=== PATIENT | female | born 1980 | race African-American/Black ===

== ENCOUNTER 2017-08-04 09:15 | Emergency (ER) | payer MEDICAID ==
[~2017-08-04] VITALS: Ht 175.3 cm; Wt 136.1 kg
[~2017-08-04 09:15] MED LIST: CARI-277 PO; LIS20T PO; MET10T PO; ONDA8TAB6 PO; OXY10CRT PO; OXYC325T14 PO; PANT40TA2 PO; SUCR1SUS10 PO
[2017-08-04] MEDS ORDERED: HYDROcodone-ACET 10/325MG TAB PO ONE (10:30)
[2017-08-04] MEDS ORDERED: LIDOCAINE 1% (LOCAL ANESTH.) PF 5ml SDV ONE (10:45)
[2017-08-04] MEDS ORDERED: cefTRIAXone SOD 1,000 MG VL IM ONE (10:45)
[2017-08-04] MEDS ORDERED: cefTRIAXone SOD 1,000 MG VL ONE (10:45)
[2017-08-04 10:56] VITALS: BP 166/93
== END 2017-08-04 11:14 | disposition home or self-care (01) ==
LOC: ER 09:15
DX: J18.9 Pneumonia, unspecified organism (principal); I10 Essential (primary) hypertension; F41.9 Anxiety disorder, unspecified; Z98.51 Tubal ligation status
CPT/HCPCS: 71046; 72100; 96372; 99284; J0696

== ENCOUNTER 2021-04-20 14:22 | Inpatient (IN) | payer MEDICAID ==
[~2021-04-20] VITALS: Ht 170.2 cm; Wt 161.9 kg
[~2021-04-20 14:22] MED LIST changes: +ONDA-143 PO; -ONDA8TAB6 PO
[2021-04-20] MEDS ORDERED: methylPREDNISolone SOD SUCC 125 MG/2 ML VL IM ONE (15:00)
[2021-04-20] MEDS ORDERED: DOXYCYCLINE 100MG/250ML 250 ML IV ONE (17:00)
[2021-04-20] MEDS ORDERED: cefTRIAXone 1GM/50ML D5W 50 ML IV ONE (18:15)
[2021-04-20] MEDS ORDERED: cefTRIAXone SOD 1,000 MG VL IM ONE (18:15)
[2021-04-20 18:42] LABS: Basophils # (auto) 0 10 ^3/uL (0-0.2); Basophils % (auto) 0.1 % (0.0-2.0); Eosinophils # (auto) 0 10 ^3/uL (0-0.8); Mean Corpuscular Hemoglobin 30.2 pg (28.0-32.0); Mean Corpuscular Hgb Conc. 32.5 g/dL (32.0-36.0); Mean Corpuscular Volume 92.8 fL (80.0-100.0); Monocytes # (auto) 0.2 10 ^3/uL (0-1.3); Monocytes % (auto) 1.9 % (0.0-12.0); Neutrophils # (auto) 7.3 10 ^3/uL (1.6-8.6); Nucleated Red Blood Cells % 0.1 %; Red Blood Cells 4.32 10^6/uL (4.0-5.20); Red Cell Distribution Width 13.8 % (11.8-14.3); White Blood Cell 8.4 10^3/uL (4.4-10.8)
[2021-04-20 19:09] LABS: Albumin 2.9 g/dL (3.4-5.0); Calcium 8.5 mg/dL (8.5-10.1); Potassium 4.1 mmol/L (3.5-5.1)
[2021-04-20 19:17] LABS: BUN/Creatinine Ratio 13.9; Bilirubin, Total 0.4 mg/dL (0.2-1.0)
[2021-04-20] MEDS ORDERED: IOHEXOL 350 MG/ML 100ML IJ ONE (20:21)
[2021-04-20] MEDS ORDERED: ONDANSETRON HCL 4 MG/2 ML VIAL IV ONE (22:00)
[2021-04-20] MEDS ORDERED: ACETAMINOPHEN 325 MG TAB PO PRN (22:45)
[2021-04-20] MEDS ORDERED: hydrALAZINE HCL 10 MG TAB PO PRN (22:45)
[2021-04-20] MEDS ORDERED: NITROGLYCERIN 0.4 MG SL TAB SL PRN (22:45)
[2021-04-20] MEDS ORDERED: MORPHINE SULFATE INJECTION 2 MG/ML SYRG IV PRN (22:45)
[2021-04-20] MEDS: PANTOPRAZOLE 40 MG/10 ML VIAL INJ IV SCH (23:28)
[2021-04-21 01:00] VITALS: BP 121/68
[2021-04-21] MEDS ORDERED: LOSA25TA38 PO (01:34)
[2021-04-21] MEDS: HYDROcodone-ACET 5/325MG TAB PO PRN (01:51)
[2021-04-21] MEDS ORDERED: SEMA2INJ SC (03:57)
[2021-04-21] MEDS ORDERED: IPRATROPIUM BROM 0.5 MG/2.5ML INH SOL NEB PRN (04:45)
[2021-04-21 05:00] VITALS: BP 113/71
[2021-04-21] MEDS: ASCORBIC ACID 500 MG TAB PO SCH (11:43)
[2021-04-21] MEDS: ZINC SULFATE 220mg CAP or TAB PO SCH (11:43)
[2021-04-21] MEDS: CHOLECALCIFEROL (VITD3) 2,000 UNIT CAP/TAB PO SCH (11:44)
[2021-04-21] MEDS: DOXYCYCLINE 100MG/250ML 250 ML IV SCH ×2 (11:47→21:14)
[2021-04-21] MEDS: PANTOPRAZOLE 40 MG/10 ML VIAL INJ IV SCH ×2 (12:03→21:14)
[2021-04-21] MEDS: DexAMETHasone SOD PHOS 10MG/1ML VIAL INJ IV SCH (12:03)
[2021-04-21] MEDS: MORPHINE SULFATE INJECTION 2 MG/ML SYRG IV PRN (14:26)
[2021-04-21] MEDS: ONDANSETRON HCL 4 MG/2 ML VIAL IV PRN (14:27)
[2021-04-21 22:00] VITALS: BP 110/71
[2021-04-22 05:35] VITALS: BP 107/66
[2021-04-22] MEDS: HYDROcodone-ACET 5/325MG TAB PO PRN (06:50)
[2021-04-22 08:23] LABS: Basophils # (auto) 0 10 ^3/uL (0-0.2); Basophils % (auto) 0.2 % (0.0-2.0); Eosinophils # (auto) 0 10 ^3/uL (0-0.8); Hematocrit 36.7 % (36.0-46.0); Hemoglobin 11.9 g/dL (12.2-16.2); Lymphocytes # (auto) 2.5 10 ^3/uL (0.4-5.4); Lymphocytes % (auto) 23.6 % (10.0-50.0); Mean Corpuscular Hemoglobin 29.9 pg (28.0-32.0); Mean Corpuscular Hgb Conc. 32.6 g/dL (32.0-36.0); Mean Corpuscular Volume 91.7 fL (80.0-100.0); Monocytes # (auto) 0.8 10 ^3/uL (0-1.3); Monocytes % (auto) 7.7 % (0.0-12.0); Neutrophils # (auto) 7.3 10 ^3/uL (1.6-8.6); Neutrophils % (auto) 68.5 % (37.0-80.0); Nucleated Red Blood Cells % 0.1 %; Red Cell Distribution Width 13.9 % (11.8-14.3); White Blood Cell 10.6 10^3/uL (4.4-10.8)
[2021-04-22 08:28] LABS: Potassium 3.6 mmol/L (3.5-5.1)
[2021-04-22 08:41] LABS: Calcium 8.7 mg/dL (8.5-10.1)
[2021-04-22 10:05] VITALS: BP 110/60
[2021-04-22] MEDS: DOXYCYCLINE 100MG/250ML 250 ML IV SCH ×2 (11:28→21:52)
[2021-04-22] MEDS: PANTOPRAZOLE 40 MG/10 ML VIAL INJ IV SCH ×2 (11:28→21:52)
[2021-04-22] MEDS: CHOLECALCIFEROL (VITD3) 2,000 UNIT CAP/TAB PO SCH (11:29)
[2021-04-22] MEDS: ZINC SULFATE 220mg CAP or TAB PO SCH (11:29)
[2021-04-22] MEDS: LIDOCAINE 5% TOPICAL PATCH TOP SCH (11:29)
[2021-04-22] MEDS: ASCORBIC ACID 500 MG TAB PO SCH (11:29)
[2021-04-22] MEDS: DexAMETHasone SOD PHOS 10MG/1ML VIAL INJ IV SCH (11:29)
[2021-04-22] MEDS: MORPHINE SULFATE INJECTION 2 MG/ML SYRG IV PRN ×2 (11:31→21:53)
[2021-04-22 12:45] VITALS: BP 112/73
[2021-04-22 16:25] VITALS: BP 111/69
[2021-04-22 22:00] VITALS: BP 120/76
[2021-04-22] MEDS: ONDANSETRON HCL 4 MG/2 ML VIAL IV PRN (22:05)
[2021-04-23 05:00] VITALS: BP 114/70
[2021-04-23 09:13] VITALS: BP 123/81
[2021-04-23] MEDS: LIDOCAINE 5% TOPICAL PATCH TOP SCH (10:00)
[2021-04-23] MEDS: ZINC SULFATE 220mg CAP or TAB PO SCH (12:36)
[2021-04-23] MEDS: PANTOPRAZOLE 40 MG/10 ML VIAL INJ IV SCH (12:36)
[2021-04-23] MEDS: ASCORBIC ACID 500 MG TAB PO SCH (12:36)
[2021-04-23] MEDS: CHOLECALCIFEROL (VITD3) 2,000 UNIT CAP/TAB PO SCH (12:37)
[2021-04-23] MEDS: DOXYCYCLINE 100MG/250ML 250 ML IV SCH (12:37)
[2021-04-23] MEDS: DexAMETHasone SOD PHOS 10MG/1ML VIAL INJ IV SCH (12:37)
[2021-04-23] MEDS: MORPHINE SULFATE INJECTION 2 MG/ML SYRG IV PRN (12:46)
[2021-04-23 12:59] VITALS: BP 111/68
[2021-04-23] MEDS ORDERED: DEX4T PO (16:49)
[2021-04-23] MEDS ORDERED: CHOL1CAP47 PO (16:49)
[2021-04-23] MEDS ORDERED: ASPI-543 PO (16:49)
[2021-04-23] MEDS ORDERED: ASCO500T11 PO (16:49)
[2021-04-23] MEDS ORDERED: FAMO20TA10 PO (16:49)
[2021-04-23] MEDS ORDERED: BUDE20SU (16:49)
[2021-04-23] MEDS ORDERED: ALBU108A5 IN (16:49)
[2021-04-23] MEDS ORDERED: DOXY-286 PO (16:49)
[2021-04-23 17:00] VITALS: BP 121/75
[2021-04-23 21:38] VITALS: BP 152/92
== END 2021-04-23 22:30 | disposition home or self-care (01) | DRG 137 ==
LOC: ER 14:22 → OVERFLOW 22:37 → TELE-WESTW 23:27
PROVIDERS: ADMIT Nurse Practitioner Family; ATTEND Nurse Practitioner Family
PROC: 05HC33Z Insertion of Infusion Device into Left Basilic Vein, Percutaneous Approach (ICD-10-PCS; principal; 2021-04-22)
PROC: B54NZZA Ultrasonography of Left Upper Extremity Veins, Guidance (ICD-10-PCS; 2021-04-22)
DX: U07.1 COVID-19 (principal); J96.01 Acute respiratory failure with hypoxia; J12.82 Pneumonia due to coronavirus disease 2019; R04.2 Hemoptysis; Z68.43 Body mass index [BMI] 50.0-59.9, adult; E66.01 Morbid (severe) obesity due to excess calories; J98.11 Atelectasis; Z88.8 Allergy status to other drugs, medicaments and biological substances; E11.9 Type 2 diabetes mellitus without complications; I10 Essential (primary) hypertension; I25.10 Atherosclerotic heart disease of native coronary artery without angina pectoris; I25.2 Old myocardial infarction; Z82.49 Family history of ischemic heart disease and other diseases of the circulatory system; Z83.3 Family history of diabetes mellitus
CPT/HCPCS: 36415; 71045; 71275; 80048; 80053; 82728; 83615; 83880; 84484; 85025; 85379; 86141; 87426; 93005; 93306; 94760; 96365; 96368; 96372; 96375; C9113; G0378; J0696; J1100; J2405; J3490